=== PATIENT | female | born 1975 | race Caucasian/White ===

== ENCOUNTER 2017-07-19 10:31 | Outpatient (CLI) | payer OTHER ==
--- NOTE | 2017-07-19 12:48 | ULT ---
ABDOMINAL UTLTRASOUND: HISTORY: Abdominal pain. FINDINGS: Real-time imaging of the upper abdomen was performed and shows a normal-appearing gallbladder. The c ommon duct measures 3 mm. Visualized liver parenchyma shows no focal findings. The spleen is 11.4 cm in length. Right and lef t kidneys are normal in size and not obstructed. Pancreas, abdominal aorta, and IVC regions are unre markable. IMPRESSION: Unremarkable abdomen ultrasound. POS: [facility]
--- NOTE | 2017-07-19 14:01 | ULT ---
PELVIC ULTRASOUND: Date: 07/19/17 COMPARISON: None. HISTORY: Right-sided pain. TECHNIQUE: Multiplanar Lainez scale sonographic imaging of the pelvis obtained with transabdominal and endovaginal imaging. Ovaries are assessed with color flow and spectral analysis. FINDINGS: Uterus measures 6.6 x 4.7 x 3.6 cm. The uterus is heterogeneous with no discrete focal mass noted. Endometrial stripe measures 3.0 mm, within normal limits. There is no free fluid appreciated within the pelvis. Right ovary measures 3.3 x 2.9 x 2.4 cm. Left ovary measures 2.3 x 1.7 x 1.5 cm. Both ovaries demonst rate blood flow. There is a hypoechoic lesion within the right ovary measuring 2.1 x 1.8 x 2.1 cm. It demonstrates inc reased through-transmission and no internal blood flow, but mild internal echogenicity. Findings sugg est a mildly complex right ovarian cyst. IMPRESSION: Findings suggesting a mildly complex right ovarian cyst, for which follow-up pelvic ultrasound is sug gested in 6 weeks. Study otherwise unremarkable. POS: [facility]
== END 2017-07-19 10:32 | disposition home or self-care (01) ==
LOC: SCSULT 10:31
PROVIDERS: ATTEND Family Medicine
DX: R10.9 Unspecified abdominal pain (principal)
CPT/HCPCS: 76700; 76856